=== PATIENT | female | born 1995 | race African-American/Black ===

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

== ENCOUNTER 2017-05-23 10:06 | Emergency (ER) | payer OTHER ==
[~2017-05-23] VITALS: Ht 162.5 cm; Wt 88.5 kg
[~2017-05-23 10:06] MED LIST changes: +PREDNISONE10 MG PO; +PROAIR HFA8.5 GM INH
[2017-05-23] MEDS ORDERED: CLARITIN-D 24 H1 TAB PO (10:30)
[2017-05-23] MEDS ORDERED: ROBITUSSIN DM 105 ML PO (10:30)
[2017-05-23] MEDS ORDERED: PREDNISONE10 MG PO (10:30)
[2017-05-23] MEDS ORDERED: FLONASE ALLERG9.9 ML NAS (10:30)
== END 2017-05-23 11:18 | disposition home or self-care (01) ==
LOC: ED 10:06
DX: J01.90 Acute sinusitis, unspecified (principal); R03.0 Elevated blood-pressure reading, without diagnosis of hypertension; J45.909 Unspecified asthma, uncomplicated; Z88.8 Allergy status to other drugs, medicaments and biological substances